=== PATIENT | female | born 1995 | race Caucasian/White ===

== ENCOUNTER 2024-12-09 07:41 | Emergency (ER) | payer OTHER ==
[~2024-12-09] VITALS: Ht 162.6 cm; Wt 65.8 kg
[2024-12-09] MEDS ORDERED: HYDROCODONE/APAP 5/325MG TABLET ONE ×3 (08:38→18:10)
[2024-12-09] MEDS ORDERED: ONDANSETRON 4 MG TAB.RAPDIS ONE ×2 (08:39→18:10)
[2024-12-09] MEDS: ONDANSETRON 4 MG TAB.RAPDIS SL ONE ×2 (08:42→18:19)
[2024-12-09] MEDS: HYDROCODONE/APAP 5/325MG TABLET PO ONE ×2 (08:57→18:24)
[2024-12-09] MEDS ORDERED: IOHEXOL-300 100 ML VIAL IV ONE (10:57)
[2024-12-09] MEDS ORDERED: IV NS 0.9% 250 ML IV ONE (10:57)
[2024-12-09] MEDS ORDERED: FLUORESCEIN SODIUM OPHTH 1 EA STRIP ONE (10:59)
[2024-12-09 14:21] LABS: BASOPHILS # (AUTO) 0.1 K/uL (0.0-0.2); BASOPHILS % (AUTO) 0.6 % (0.0-2.0); EOSINOPHILS # (AUTO) 0.1 K/uL (0.0-0.7); HEMATOCRIT 36 % (33-45); HEMOGLOBIN 11.8 g/dL (11.5-14.8); LYMPHOCYTES # (AUTO) 3.7 K/uL (0.8-4.8); LYMPHOCYTES % (AUTO) 32.3 % (20.0-44.0); MEAN CORPUSCULAR HEMOGLOBIN 24 PG (26.0-33.0); MEAN CORPUSCULAR HGB CONC 33 g/dl (31.0-36.0); MEAN CORPUSCULAR VOLUME 73 fL (82-100); MONOCYTES # (AUTO) 0.9 K/uL (0.1-1.30); MONOCYTES % (AUTO) 7.5 % (2.0-12.0); NEUTROPHILS # (AUTO) 6.7 K/uL (1.8-8.9); NEUTROPHILS % (AUTO) 58.6 % (43.0-81.0); PLATELET COUNT (AUTO) 321 K/uL (150-450); RED BLOOD CELL COUNT(AUTO) 4.92 MIL/uL (4.0-5.2); WHITE BLOOD COUNT (AUTO) 11.5 K/uL (4.3-11.0)
[2024-12-09 14:30] LABS: CALCIUM, SERUM 8.5 mg/dL (8.5-10.1); CREATININE 0.7 mg/dL (0.6-1.3); POTASSIUM 3.4 mmol/L (3.5-5.1)
[2024-12-09 14:40] LABS: INR 1.09 (0.91-1.10); PARTIAL THROMBOPLASTIN TIME 28.5 SEC (24.3-34.3); PROTHROMBIN TIME 11.5 SECS (9.2-11.1)
[2024-12-09 15:17] LABS: LYMPHOCYTES % (MANUAL) 35 % (16-48); MONOCYTES % (MANUAL) 5 % (0-11.0); NEUTROPHILS % (MANUAL) 60 (42-76)
[2024-12-09 15:18] LABS: ANISOCYTOSIS 1+; HYPOCHROMASIA 2+; PLATELET ESTIMATE ADEQUATE
[2024-12-09] MEDS ORDERED: HYDR-3980 PO (18:53)
[2024-12-09] MEDS ORDERED: AMOX-430 PO (18:53)
[2024-12-09] MEDS ORDERED: IBUP-1490 PO (18:53)
[2024-12-09] MEDS ORDERED: ONDA4TAB11 PO (18:53)
[2024-12-09] MEDS ORDERED: ACET-2605 PO (18:53)
[2024-12-09 19:28] VITALS: BP 109/78; TEMP 98.6; O2SAT 99
== END 2024-12-09 19:31 | disposition home or self-care (01) ==
LOC: ER 08:10
DX: S02.32XA Fracture of orbital floor, left side, initial encounter for closed fracture (principal); S02.40DA Maxillary fracture, left side, initial encounter for closed fracture; R51.9 Headache, unspecified; R11.0 Nausea; R42 Dizziness and giddiness; R94.31 Abnormal electrocardiogram [ECG] [EKG]; R04.0 Epistaxis; H11.32 Conjunctival hemorrhage, left eye; Y04.0XXA Assault by unarmed brawl or fight, initial encounter; Y93.89 Activity, other specified; Y92.098 Other place in other non-institutional residence as the place of occurrence of the external cause; Y99.8 Other external cause status
CPT/HCPCS: 99285; 70470; 93005; 70486; 85025; 80048; 84703; 36415; 85730; 70450; 85007; J7050; Q0162 ×2; Q9967